=== PATIENT | female | born 1950 | race Caucasian/White ===

== ENCOUNTER 2019-10-11 10:43 | Emergency (ER) | payer MEDICARE, BC ==
--- NOTE | 2019-10-11 11:14 | EDM.PDOC ---
ED HPI GENERAL MEDICAL PROBLEM - General Chief Complaint: Chest Pain Stated Complaint: CHEST PAIN Time Seen by Provider: 10/11/19 11:09 Source of Information: Reports: Patient History Limitations: Reports: No Limitations - History of Present Illness INITIAL COMMENTS - FREE TEXT/NARRATIVE: pt gives a history of a resp illness in early August. She was treated as a bronchitis. She has had a mild residual cough. She developed very uncomfortable pain in the epigastric area extending to the chest during the nite. This did last about 1-2 hours. She finally did fall asleep and when she awoke she was painfree but still felt slight restrictive breathing. Onset: Other (pt had the discomfort last nite. ) Duration: Hour(s): Location: Reports: Chest, Abdomen, Other (pt has had reflux in the past. ) Associated Symptoms: Reports: Chest Pain, Cough, Other (pt feels mildly tight in the chest) Chest Pain Score (Numeric/FACES): 2 - Related Data Allergies Allergy/AdvReac Type Severity Reaction Status Date / Time atorvastatin [From Lipitor] Allergy Muscle Verified 10/11/19 11:03 Aches ezetimibe [From Zetia] Allergy Abdominal Verified 10/11/19 11:03 Pain sertraline [From Zoloft] Allergy Hallucinati Verified 10/11/19 11:03 ons [id number] Reductase Allergy Abdominal Verified 10/11/19 11:03 Inhibitor Pain Home Meds: Home Meds Aspirin [Halfprin] 81 mg PO DAILY 10/11/19 [History] Fenofibrate Nanocrystallized [Fenofibrate] 145 mg PO DAILY 10/11/19 [History] Metoprolol Succinate [Toprol XL 50mg] 50 mg PO DAILY 10/11/19 [History] PARoxetine [Paxil] 20 mg PO DAILY 10/11/19 [History] metFORMIN [Glucophage] 1,000 mg PO BIDMEALS 10/11/19 [History] ED ROS GENERAL - Review of Systems Review Of Systems: See Below Constitutional: Reports: No Symptoms HEENT: Reports: No Symptoms Respiratory: Reports: Cough Cardiovascular: Reports: Chest Pain, Other (pt developed epigastric pain radiatng to her chest. ) Endocrine: Reports: No Symptoms GI/Abdominal: Reports: Abdominal Pain, Other ( burning pain in the epigastric area. ) : Reports: No Symptoms Musculoskeletal: Reports: No Symptoms Skin: Reports: No Symptoms Neurological: Reports: No Symptoms Psychiatric: Reports: No Symptoms ED EXAM, GENERAL - Physical Exam Exam: See Below Free Text/Narrative:: pt arrived with a history of burning chest pain in the epigastric area and extending to the chest during the nite. She was mildly sob. She did have some discomfort extend to the rt arm. Exam Limited By: No Limitations General Appearance: Alert, Anxious, Moderate Distress Ears: Normal TMs Nose: Normal Inspection Throat/Mouth: Normal Inspection Head: Atraumatic Neck: Normal Inspection Respiratory/Chest: No Respiratory Distress Cardiovascular: Regular Rate, Rhythm GI/Abdominal: Other (pt does not have epigastric tenderness. ) (Female) Exam: Deferred Rectal (Female) Exam: Deferred Back Exam: Normal Inspection Extremities: Normal Inspection Neurological: Alert, Oriented, Normal Cognition Course - Vital Signs Last Recorded V/S: Last Vital Signs Temp 35.8 C L 10/11/19 11:14 Pulse 74 10/11/19 11:14 Resp 10 L 10/11/19 11:14 BP 152/86 H 10/11/19 11:14 Pulse Ox 95 10/11/19 11:14 - Orders/Labs/Meds Labs: Laboratory Tests 10/11/19 10/11/19 10/11/19 Range/Units 11:17 11:17 11:17 WBC 6.1 (4.5-11.0) K/uL RBC 4.16 (3.30-5.50) M/uL Hgb 12.6 (12.0-15.0) g/dL Hct 38.5 (36.0-48.0) % MCV 93 (80-98) fL MCH 30 (27-31) pg MCHC 33 (32-36) % Plt Count 300 (150-400) K/uL Neut % (Auto) 43 (36-66) % Lymph % (Auto) 44 (24-44) % [place] % (Auto) 9 H (2-6) % Eos % (Auto) 4 (2-4) % Baso % (Auto) 1 (0-1) % Sodium 144 (140-148) mmol/L Potassium 4.3 (3.6-5.2) mmol/L Chloride 107 (100-108) mmol/L Carbon Dioxide 26 (21-32) mmol/L Anion Gap 11.1 (5.0-14.0) mmol/L BUN 18 (7-18) mg/dL Creatinine 1.0 (0.6-1.0) mg/dL Est Cr Clr Drug Dosing 49.12 mL/min Estimated GFR (MDRD) 55 L (>60) Glucose 111 H (74-106) mg/dL Calcium 9.2 (8.5-10.1) mg/dL Total Bilirubin 0.3 (0.2-1.0) mg/dL AST 24 (15-37) U/L ALT 50 (12-78) U/L Alkaline Phosphatase 52 (46-116) U/L Troponin I < 0.017 (0.000-0.056) ng/mL Total Protein 6.7 (6.4-8.2) g/dL Albumin 3.6 (3.4-5.0) g/dL Globulin 3.1 (2.3-3.5) g/dL Albumin/Globulin Ratio 1.2 (1.2-2.2) Urine Color (YELLOW) Urine Appearance (CLEAR) Urine pH (5.0-8.0) Ur Specific [place] (1.008-1.030) Urine Protein (NEGATIVE) mg/dL Urine Glucose (UA) (NEGATIVE) mg/dL Urine Ketones (NEGATIVE) mg/dL Urine Occult Blood (NEGATIVE) Urine Nitrite (NEGATIVE) Urine Bilirubin (NEGATIVE) Urine Urobilinogen (0.2-1.0) EU/dL Ur Leukocyte Esterase (NEGATIVE) Urine RBC (0-5) Urine WBC (0-5) Ur Epithelial Cells Urine Bacteria 10/11/19 Range/Units 11:26 WBC (4.5-11.0) K/uL RBC (3.30-5.50) M/uL Hgb (12.0-15.0) g/dL Hct (36.0-48.0) % MCV (80-98) fL MCH (27-31) pg MCHC (32-36) % Plt Count (150-400) K/uL Neut % (Auto) (36-66) % Lymph % (Auto) (24-44) % [place] % (Auto) (2-6) % Eos % (Auto) (2-4) % Baso % (Auto) (0-1) % Sodium (140-148) mmol/L Potassium (3.6-5.2) mmol/L Chloride (100-108) mmol/L Carbon Dioxide (21-32) mmol/L Anion Gap (5.0-14.0) mmol/L BUN (7-18) mg/dL Creatinine (0.6-1.0) mg/dL Est Cr Clr Drug Dosing mL/min Estimated GFR (MDRD) (>60) Glucose (74-106) mg/dL Calcium (8.5-10.1) mg/dL Total Bilirubin (0.2-1.0) mg/dL AST (15-37) U/L ALT (12-78) U/L Alkaline Phosphatase (46-116) U/L Troponin I (0.000-0.056) ng/mL Total Protein (6.4-8.2) g/dL Albumin (3.4-5.0) g/dL Globulin (2.3-3.5) g/dL Albumin/Globulin Ratio (1.2-2.2) Urine Color Yellow (YELLOW) Urine Appearance Clear (CLEAR) Urine pH 5.5 (5.0-8.0) Ur Specific [place] 1.025 (1.008-1.030) Urine Protein Negative (NEGATIVE) mg/dL Urine Glucose (UA) Negative (NEGATIVE) mg/dL Urine Ketones Negative (NEGATIVE) mg/dL Urine Occult Blood Negative (NEGATIVE) Urine Nitrite Negative (NEGATIVE) Urine Bilirubin Negative (NEGATIVE) Urine Urobilinogen 0.2 (0.2-1.0) EU/dL Ur Leukocyte Esterase Negative (NEGATIVE) Urine RBC Not seen (0-5) Urine WBC 0-5 (0-5) Ur Epithelial Cells Few Urine Bacteria Not seen - Re-Assessments/Exams Free Text/Narrative Re-Assessment/Exam: 10/11/19 12:12 pt had a normal chest xray. Her trop was normal. Because of how severe the pain was I feel she should have a exercise cardiolyte. She does have her GB but she had no rt sided abdomanal pain or shoulder blade pain. 10/11/19 12:14 Departure - Departure Time of Disposition: 12:45 Disposition: Home, Self-Care 01 Condition: Fair Clinical Impression: Atypical chest pain Instructions: Nonspecific Chest Pain, Adult Referrals: PCP,None [Primary Care Provider] - Forms: ED Department Discharge Care Plan Goals: rtc for a exercise cardiolyte., rtc if pt should have a sudden reoccurence of the pain. Sepsis Event Note - Focused Exam Date Exam was Performed: 10/14/19 Time Exam was Performed: 18:40
--- NOTE | 2019-10-11 11:49 | CR ---
CHEST: 2 view CLINICAL HISTORY:Chest pain COMPARISON:None FINDINGS: The heart size, pulmonary vascularity and hilar structures are normal. No infiltrate effusion or pneumothorax is seen. There are atherosclerotic changes in the aorta. IMPRESSION: No acute cardiopulmonary process.
== END 2019-10-11 12:45 | disposition home or self-care (01) ==
LOC: JP.ED 10:43
DX: R07.89 Other chest pain (principal); Z88.8 Allergy status to other drugs, medicaments and biological substances; Z79.82 Long term (current) use of aspirin; Z79.84 Long term (current) use of oral hypoglycemic drugs; Z79.899 Other long term (current) drug therapy
CPT/HCPCS: 36415; 71046; 71046-26; 80053; 81001; 84484; 85025; 93005; 93010; 99284; 99285-25

== ENCOUNTER 2024-12-16 08:40 | Emergency (ER) | payer MEDICARE, BC ==
[2024-12-16] MEDS: Tranexamic Acid 1,000 MG/10 ML Vial TOP ONE (08:58)
[2024-12-16] MEDS: Silver Nitrate Applicator Each TOP ONE (09:32)
== END 2024-12-16 09:39 | disposition home or self-care (01) ==
LOC: JP.ED 08:40
DX: R04.0 Epistaxis (principal); E78.00 Pure hypercholesterolemia, unspecified; I10 Essential (primary) hypertension; K21.9 Gastro-esophageal reflux disease without esophagitis; E11.9 Type 2 diabetes mellitus without complications; Z88.5 Allergy status to narcotic agent; Z79.82 Long term (current) use of aspirin; Z79.84 Long term (current) use of oral hypoglycemic drugs
CPT/HCPCS: 30901; 99283-25